=== PATIENT | female | born 2005 | race Caucasian/White ===

== ENCOUNTER 2024-05-26 16:03 | Emergency (ER) | payer BC, SELFPAY ==
[2024-05-26 16:19] VITALS: BP 137/70; PULSE 74; RESP 18; TEMP 36.2; O2SAT 100
[2024-05-26 16:27] LABS: EDUAAPPEAR Cloudy; EDUABILI Negative (Negative); EDUABLOOD Negative (Negative); EDUACOLOR1 Yellow; EDUAGLUCOSE Negative (Negative); EDUAKETONE Negative (Negative); EDUALEUKO Trace (Negative); EDUANITRATE Negative (Negative); EDUAPH 7.5; EDUAPROTEIN Trace (Negative)
--- NOTE | 2024-05-26 16:36 | ED_ITS ---
HPI - Female Genitourinary General Chief complaint: Urogenital-Female Stated complaint: uti symptoms Time Seen by Provider: 05/26/24 16:12 Source: patient Mode of arrival: ambulatory Limitations: no limitations History of Present Illness HPI Narrative: 18-year-old female presents to [facility] accompanied by significant other for complaints of 1 week history of foul-smelling odor, urinary frequency, urgency and pink-tinged on toilet paper after wiping. Patient denies abdominal pain, flank pain, nausea vomiting, diarrhea or fevers. Patient denies vaginal discharge or concern for STDs. Last menstrual period was 2 weeks ago. Patient denies concern for MD elicited complaint: dysuria and UTI Onset (ago): day(s) (7) Vaginal discharge: none Vaginal bleeding: none Urinary symptoms: Dysuria, Urgency, Frequency and Foul Smelling Urine Exacerbating factors: none Relieving factors: none Associated symptoms: denies other symptoms Treatment prior to arrival: none Sexual activity: Yes Patient : No Related Data Home Medications ?Medication ?Instructions ?Recorded ?Confirmed ?Last Taken ?Type norethindrone 1 mg-ethinyl tablet 05/26/24 Unknown History estradiol 10 mcg (24)-iron 10 mcg(2) tablet (Lo Loestrin Fe) Allergies Allergy/AdvReac Type Severity Reaction Status Date / Time No Known Allergies Allergy Verified 05/26/24 16:23 Review of Systems Constitutional: Constitutional: Denies chills and Denies fatigue ENT: Denies nasal congestion and Denies sore throat Cardiovascular: Cardiovascular: Denies chest pain Respiratory: Respiratory: Denies cough, Denies dyspnea and Denies wheezing Gastrointestinal: Gastrointestinal: Denies diarrhea, Denies nausea and Denies vomiting Genitourinary: Genitourinary: Denies hematuria, Reports nocturia, Denies genital lesions, Reports dysuria, Denies pelvic pain, Denies flank pain and Denies vaginal discharge Musculoskeletal: Musculoskeletal: Denies arthralgias and Denies joint swelling Integumentary/Breasts: Skin/Breast: Denies erythema and Denies rash Neurologic: Denies dizziness, Denies syncope and Denies headache(s) PMFSH Comments At time of signature, I agree with nursing past medical, surgical, social and family history. There is no relevant family history pertinent to the presenting complaint. Exam Const: General: healthy appearing and no acute distress Nutritional Appearance: well nourished Orientation/consciousness: patient oriented x3 Limitations: no limitations HENMT: Head: normal to inspection Eyes: Conjunctivae: conjunctivae normal Neck: Neck: normal visual inspection Resp: Effort & Inspection: normal respiratory effort and not labored Auscultation: clear to auscultation bilaterally, no crackles, no rales, no rhonchi and no wheezes Cardio: Rate: regular rate Rhythm: regular rhythm Heart sounds: no murmurs GI: Inspection: non-distended GI Palp: Yes Soft to palpation, No Tenderness to palpation present (GI), No Guarding due to palpation present (GI) and No Rigid due to palpation : General: Yes bladder normal to palpation and Yes no CVA tenderness Back/Spine/Pelvis: Back: no CVA tenderness Skin: General skin exam: normal color Rashes: no rashes Wounds: no wounds Neuro: General: patient oriented x3 and moves all extremities Speech: normal speech Gait exam (Neuro): Normal gait present Extrem: General: normal to inspection Psych: Affect: normal affect Attitude: cooperative Course Course Level of Care: Express Care Visit Vital Signs Vital signs: Vital Signs Temperature 36.2 C L 05/26/24 16:19 Pulse Rate 74 05/26/24 16:19 Respiratory Rate 18 05/26/24 16:19 Blood Pressure 137/70 05/26/24 16:19 Pulse Oximetry 100 05/26/24 16:19 Oxygen Delivery Room Air 05/26/24 16:19 Temperature 36.2 C L 05/26/24 16:19 Pulse Rate 74 05/26/24 16:19 Respiratory Rate 18 05/26/24 16:19 Blood Pressure 137/70 05/26/24 16:19 Pulse Oximetry 100 05/26/24 16:19 Oxygen Delivery Room Air 05/26/24 16:19 MDM - Female Genitourinary MDM Narrative Medical decision making narrative: Urine culture obtained and sent to lab. Will start patient on antibiotic pending urine culture results. Patient denies need for STD testing. Encouraged patient to follow-up with primary care provider or proceed to the emergency room if symptoms worsen Differential Diagnosis Differential diagnosis: Likely bacterial vaginosis, trichomoniasis and cervicitis Lab Data Labs: Lab Results 05/26/24 Range/Units 16:25 POC Urine Color Yellow POC Urine Clarity Cloudy POC Urine pH 7.5 POC Ur Specif [place] 1.020 POC Urine Protein Trace (Negative) POC Ur Glucose (UA) Negative (Negative) POC Urine Ketones Negative (Negative) POC Urine Blood Negative (Negative) POC Urine Nitrite Negative (Negative) POC Urine Bilirubin Negative (Negative) POC Urine Urobilinogen 1.0 POC U Leukocyte Esteras Trace (Negative) Critical Care Time Critical Care Time Critical Care Time: No Discharge Plan Discharge Clinical Impression: Urinary tract infection Qualifiers: Urinary tract infection type: acute cystitis Hematuria presence: without hematuria Qualified Code(s): N30.00 - Acute cystitis without hematuria Patient Disposition: Home, Self-Care Condition: Stable Instructions: Antibiotic Form, Urinary Tract Infection in Women (ED) Additional Instructions: Increase fluids especially water Avoid caffeine and carbonated beverages Take the entire course of antibiotic as directed We will send a urine culture off to the lab. If the culture identifies an organism that the prescribed antibiotic will not treat, you will receive a phone call from an urgent care staff member and an appropriate antibiotic will be prescribed. If the urine culture fails to identify an organism, you should follow up with your primary care doctor who can then refer you to a urologist for further testing. Tylenol/ibuprofen for pain or fever Follow-up with your primary care provider if further problems or concerns Patient Language: Georgian Prescriptions: New nitrofurantoin monohyd/m-cryst [Macrobid] 100 mg capsule 100 mg PO Q12H 5 Days Qty: 10 0RF Rx Instructions: must administer with a meal/food No Action Lo Loestrin Fe 1 mg-10 mcg (24)/10 mcg (2) tablet Follow-up/Referrals: PHYSICIAN,BEAN SNIPPER [Primary Care Provider] - Time of Disposition: 16:42
== END 2024-05-26 16:46 | disposition home or self-care (01) ==
PROVIDERS: Emergency Provider Nurse Practitioner Family; Referring Provider Emergency Medicine
DX: N30.00 Acute cystitis without hematuria (principal)
CPT/HCPCS: 81003; 87086; 99203; G0463